=== PATIENT | male | born 1985 ===

== ENCOUNTER 2020-07-28 07:10 | Emergency (ER) | payer SELFPAY ==
[2020-07-28 07:16] VITALS: BP 150/97
[2020-07-28] MEDS ORDERED: DIPHtheria,PERTUSSIS(ACELL),TETANUS VACCINE/PF 0.5 ML VIAL IM ONE (07:25)
[2020-07-28] MEDS ORDERED: ACETAMINOPHEN 500 MG TAB PO ONE (07:25)
--- NOTE | 2020-07-28 07:25 | Emergency Department Report ---
ED Head Trauma HPI - General Chief complaint: Head Injury Stated complaint: WORK INJURY Time Seen by Provider: 07/28/20 07:18 Source: patient Mode of arrival: Ambulatory Limitations: No Limitations - History of Present Illness Initial comments: 35-year-old obese male who reports no significant past medical history presents to the ER today with complaints of head injury. Patient states that this occurred 3 days ago as he was at work. Patient states that he works for [employer]. 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 He denies any LOC. He reports mild nausea at time of injury but this has since resolved. He c/o SHOEMAKER and photo sensitivity since the injury. He was given referrals by his job to different providers to get checked out but he has not been able to get a hold of anyone. He has laceration to top of his head. He reports no neck pain, vision changes, slurred speech or any other symptoms at this time. MD Complaint: head injury -: Sudden, days(s) (3 days ago) - Related Data Previous Rx's Medication Instructions Recorded Last Taken Type Butalb/Acetaminophen/Caffeine 1 cap PO Q6HR PRN #12 cap 07/28/20 Unknown Rx [Fioricet 50-300-40 mg CAP] Allergies/Adverse reactions: Allergies Allergy/AdvReac Type Severity Reaction Status Date / Time No Known Allergies Allergy Unverified 07/28/20 07:12 ED Review of Systems ROS: Stated complaint: WORK INJURY Other details as noted in HPI Comment: All other systems reviewed and negative Constitutional: denies: chills, fever Eyes: denies: eye pain, eye discharge, vision change ENT: denies: ear pain, throat pain Respiratory: denies: cough, shortness of breath, wheezing Cardiovascular: denies: chest pain, palpitations Endocrine: no symptoms reported Gastrointestinal: denies: nausea, vomiting, diarrhea, constipation, hematemesis, melena, hematochezia Skin: other (Lac to scalp ) Neurological: headache Psychiatric: denies: anxiety, depression ED Past Medical Hx - Past Medical History Previous Medical History?: No - Surgical History Additional Surgical History: knee scope - Social History Smoking Status: Former Smoker Substance Use Type: Alcohol - Medications Home Medications: Home Medications Medication Instructions Recorded Confirmed Last Taken Type Butalb/Acetaminophen/Caffeine 1 cap PO Q6HR PRN #12 cap 07/28/20 Unknown Rx [Fioricet 50-300-40 mg CAP] ED Physical Exam - General Limitations: No Limitations General appearance: alert, in no apparent distress - Head Head exam: Present: other (Healing laceration noted to the right frontal/parietal scalp; scab noted; no secondary infection; no tenderness to palpate) - Eye Eye exam: Present: normal appearance, PERRL, EOMI Pupils: Present: normal accommodation - ENT ENT exam: Present: normal exam, mucous membranes moist - Neck Neck exam: Present: normal inspection - Respiratory Respiratory exam: Present: normal lung sounds bilaterally. Absent: respiratory distress - Cardiovascular Cardiovascular Exam: Present: regular rate, normal rhythm, normal heart sounds - Neurological Exam Neurological exam: Present: alert, oriented X3, CN II-XII intact, normal gait - Psychiatric Psychiatric exam: Present: normal affect, normal mood - Skin Skin exam: Present: intact ED Course Vital Signs 07/28/20 07:15 Temperature 98 F Pulse Rate 90 Respiratory 20 Rate Blood Pressure 150/97 [Right] O2 Sat by Pulse 95 Oximetry - Radiology Data Radiology results: report reviewed Head CT negative for anything acute. - Medical Decision Making The patient presented with a complaint of a head injury. Patient is resting comfortably and he is alert and in no distress. The patient has a normal mental status, has a GCS of 15, and is neurologically intact. The history, exam, diagnostic testing and current condition does not demonstrate signs of basilar s kull fracture, clinically significant intracranial injury or cervical trauma. Patient's vital signs have been stable. Discussed CT results with patient. The patient condition is stable and appropriate for discharge. The patient will pursue further outpatient evaluation with the primary care physician or other designated as indicated on discharge instructions for Critical care attestation.: If time is entered above; I have spent that time in minutes in the direct care of this critically ill patient, excluding procedure time. ED Disposition Clinical Impression: Head injury, closed, without LOC, Laceration of head, Post-traumatic headache Disposition: DC-01 TO HOME OR SELFCARE Is pt being admited?: No Does the pt Need Aspirin: No Condition: Stable Instructions: Head Injury, Adult, [id number], Nonsutured Laceration Care Additional Instructions: Take the pain medication as prescribed. Follow-up with the primary care doctor listed on your discharge instructions or follow-up with the providers given to you by your job. Return to the ER if your symptoms changes or worsens in any way. Prescriptions: Butalb/Acetaminophen/Caffeine [Fioricet 50-300-40 mg CAP] 1 cap PO Q6HR PRN #12 cap PRN Reason: Headache Referrals: NOVA GIPSON MD [Staff Physician] - 3-5 Days Forms: Work/School Release Form(ED) Time of Disposition: 08:34
--- NOTE | 2020-07-28 08:04 | Cat Scan Report ---
CT head without contrast INDICATION : MAIN. Head injury 3 days ago with dizziness TECHNIQUE: Axial imaging performed from the skull apex through the skull base without the use of con trast. All CT scans at this location are performed using CT dose reduction for ALARA by means of aut omated exposure control. COMPARISON: None FINDINGS: Parenchyma: No acute intracranial hemorrhage or parenchymal abnormality. Ventricles: Ventricles are normal in size and appear symmetric. Soft tissues: Soft tissues including the orbits appear normal. Bones: No acute osseous abnormality. Sinuses: Sinuses and mastoid air cells are clear. IMPRESSION: No acute abnormality. Signer Name: Joaquin Lawler MD Signed: 07/28/2020 8:00 AM Workstation Name: [id number]
== END 2020-07-28 08:46 | disposition home or self-care (01) ==
LOC: ED 07:10
DX: S01.91XA Laceration without foreign body of unspecified part of head, initial encounter (principal); S09.90XA Unspecified injury of head, initial encounter; G44.309 Post-traumatic headache, unspecified, not intractable; Z79.899 Other long term (current) drug therapy; Z87.891 Personal history of nicotine dependence; X58.XXXA Exposure to other specified factors, initial encounter; Y93.89 Activity, other specified; Y92.89 Other specified places as the place of occurrence of the external cause; Y99.0 Civilian activity done for income or pay
CPT/HCPCS: 70450; 90471; 90715